=== PATIENT | female | born 1985 | race Caucasian/White ===

== ENCOUNTER → 2018-05-26 | Outpatient (CLI) | payer BC ==
--- NOTE | 2018-05-26 15:17 | US ---
EXAM DESCRIPTION: Abdomen,Complete: Ultrasound. CLINICAL HISTORY: R10.11 COMPARISON: None Available. TECHNIQUE: Transabdominal scannin-dimensional and Doppler modes. FINDINGS: Gallbladder: Normal size and echogenicity of the gallbladder with no intraluminal stones or sludge. Wall not thickened 1.1 mm. No fluid around the wall. Nontender with transducer pressure. Common bile duct: 3-6 mm, normal caliber. Liver: Long axis of the right lobe 17.1 cm. Normal echogenicity. Smooth capsule where seen. Normal direction of vascular flow and normal ducts. No ascites. Pancreas: Included segments with normal echogenicity. Duct not seen.. Abdominal aorta: Normal caliber from the proximal segment to the distal bifurcation. IVC: visualized; normal caliber. Spleen normal echogenicity; long axis measurement is 13.2 cm. Right kidney: 11.8 cm long axis with normal cortical thickness and echogenicity. No hydronephrosis or perinephric fluid. Left kidney: 11.9 cm long axis with normal cortical thickness and echogenicity. No hydronephrosis or perinephric fluid. IMPRESSION: 1. Normal ultrasound of the abdomen. 2. Normal size of the organs. No dilated ducts. No free fluid. Electronically signed by: Mansoor Evans MD 05/26/2018 3:13 PM [facility]
== END ==
LOC: US 09:25
PROVIDERS: ATTEND General Practice
DX: R10.11 Right upper quadrant pain (principal)

== ENCOUNTER → 2020-01-11 | Outpatient (CLI) | payer OTHER ==
--- NOTE | 2020-01-12 14:49 | MRI ---
EXAM DESCRIPTION: Lumbar Spine w/o Contrast : Magnetic Resonance Imaging. CLINICAL HISTORY: SPONDYLOSIS LUMBAR REGION COMPARISON: Radiographs of the lumbar spine on the same visit. TECHNIQUE: Multiplanar, multiple standard sequences, non contrast MRI, lumbar spine. FINDINGS: L5-S1: The disc is well visualized on axial T2 series 501, image 3. Decreased disc space with normal signal in the disc and no bulging. Disc space appears rudimentary with question of sacralization of the L5 lumbar vertebra, particularly the right transverse process. Also the facet joints bilaterally. Mild canal narrowing. Bony narrowing of the left foramen and mild stenosis. Right foramen is mildly narrowed. L4-L5: Disc desiccation and disc space loss. Posterior mild endplate reactive changes. Grade 1 retrolisthesis 3.5 mm. Posterior broad-based disc bulge and minimal inferior migration encroaching on the left subarticular recess and the left descending L5 nerve. Minimal hypertrophy of the posterior flavum ligaments and facet joints (canal elements). Mild canal narrowing. Moderate bilateral foraminal narrowing, more on the left. L3-L4: Mild to moderate disc space loss particularly bilateral margins. Moderate endplate reactive changes bilaterally. Posterior broad-based disc bulge with 3 mm retrolisthesis. Disc migrating inferiorly in the midline into the left of midline with encroachment on the thecal sac, left subarticular recess, and left descending L5 nerve. Minimal hypertrophy of the canal elements. AP canal 11 mm. Bilateral mild foraminal narrowing more on the left. L2-L3: Disc space preserved posterior midline focal bulge or small protrusion impressing on the thecal sac. Hypertrophic changes in the canal elements with AP canal diameter 9 mm. Bilateral mild foraminal narrowing. L1-L2: Normal signal in the disc with disc space preserved. No bulging. Canal elements unremarkable. Bilateral foramina and canal are patent. T12-L1: Disc space preserved with normal signal in the disc. No bulging. Canal elements unremarkable. Bilateral foramina and canal are patent. Conus terminates just below the disc space. No significant scoliosis. Paravertebral soft tissues negative.. Distal cord normal signal and caliber. Otherwise normal marrow signal in the remaining vertebral bodies and the posterior elements. Vertebral bodies are not compressed at any level. IMPRESSION: 1. Question of transitional L5 vertebral body, partially sacralized, particularly the right transverse process with rudimentary appearance of the L5-S1 disc space. Lumbosacral vertebral anomalies can be a cause of abnormal lumbosacral biomechanics and a source of low back pain. 2. Bony narrowing of the left L5-S1 foramen and mild stenosis. Correlate for left L5 radiculopathy. 3. Retrolisthesis at L3-L4 and L4-L5. At both levels, and inferior disc migration to the left of midline encroaching on the subarticular recesses and possible compromise of the left L4 nerve at L3-4 and the left L5 nerve at L4-5. Also bilateral spondylosis at L3-L4 which is most likely a source of low back pain. 4. Multifactorial mild central canal stenosis L2-L3 with small protrusion or focal bulge of the disc. 5. Please refer to FINDINGS for discussion of results at other disc space levels. Electronically signed by: Mansoor Evans MD 01/12/2020 2:47 PM CDT
--- NOTE | 2020-01-12 14:54 | RAD ---
EXAM DESCRIPTION: Lumbar Spine,Flex/Ext: CR/DR/x-ray. CLINICAL HISTORY: 34 years Female SPONDYLOSIS COMPARISON: MRI scan lumbar spine noncontrast on this visit. TECHNIQUE: 2/3 Views lumbar spine. AP Lateral lumbosacral lateral spot L5-S1. . Limited visualization due to patient large body habitus. FINDINGS: Lumbar type vertebra: 5. Transitional vertebrae: Possible thoracolumbar transitional vertebra, with ribs not well seen. Disc spaces: Narrowing L5-S1, L4-L5, and L3-L4. Facet joints: L5, S1, and facet joints are not well seen. Compression deformities: None. Bone Density: Normal. Alignment: Retrolisthesis L3-L4 and L4-L5 stable with flexion and extension. Limited movement of these segments in both directions. Abdomen: Unremarkable. IMPRESSION: Limited study due to patient large body habitus. L5-S1 disc space difficult to evaluate. Retrolisthesis L4-L5 and L3-L4 which does not change significantly with flexion or extension. Possible thoracolumbar transitional vertebra. Consider AP and lateral radiographs of the thoracic spine for rib counting purposes. Transitional L5 vertebra seen on lumbar MRI on this visit. Electronically signed by: Mansoor Evans MD 01/12/2020 2:52 PM CDT
== END ==
LOC: MRI 11:00
PROVIDERS: ATTEND Neurological Surgery
DX: M47.816 Spondylosis without myelopathy or radiculopathy, lumbar region (principal); M51.86 Other intervertebral disc disorders, lumbar region; M48.061 Spinal stenosis, lumbar region without neurogenic claudication; M48.07 Spinal stenosis, lumbosacral region; M43.16 Spondylolisthesis, lumbar region; M51.36 Other intervertebral disc degeneration, lumbar region; M51.87 Other intervertebral disc disorders, lumbosacral region

== ENCOUNTER 2020-05-19 09:33 | Emergency (ER) | payer BC, OTHER ==
--- NOTE | 2020-05-19 09:37 | ED.PDOC ---
History of Present Illness - General Stated Complaint: Fall, right knee injury Time Seen by Provider: 05/19/20 09:36 - History of Present Illness Initial Comments: Patient states she was working at [employer] when she bumped into a table which caused her knee to bend with an audible pop any sudden onset of pain. She then fell down landing on her right hip. Patient does not complain of any pain except in her right knee. She did not hit her head. No neck or back pain. No abdominal pain or chest injury. No weakness or numbness. Occurred: just prior to arrival Severity: moderate Pain Location: lower extremity - Right knee Method of Injury: fall Improving Factors: rest Worsening Factors: movement Loss of Consciousness: no loss of consciousness Associated Symptoms (Fall): denies symptoms Allergies/Adverse Reactions: Allergies NO KNOWN ALLERGY Allergy (Verified 05/19/20 09:37) Review of Systems - Review of Systems Constitutional: States: no symptoms reported EENTM: States: no symptoms reported Respiratory: States: no symptoms reported Cardiology: States: no symptoms reported Gastrointestinal/Abdominal: States: no symptoms reported Musculoskeletal: States: see HPI Skin: States: no symptoms reported Neurological: States: no symptoms reported Endocrine: States: no symptoms reported Hematologic/Lymphatic: States: no symptoms reported Family Medical History - Family History Mother Family History: Unknown Physical Exam - Physical Exam General Appearance: Alert, Comfortable Head Injury: no evidence of injury Eye Exam: bilateral normal ENT Exam: no evidence of ENT injury Neck Exam: non-tender, full range of motion Cardiovascular/Respiratory: regular rate, rhythm, no M/R/G, other - Thorax nontender Gastrointestinal/Abdominal: normal bowel sounds Back Exam: normal inspection, no vertebral tenderness Extremity Exam: other - Right knee tender over the medial joint line without ligamentous laxity. Danay's test is negative. Patella nontender. Full active range of motion. Right hip is nontender with good range of motion without pain. Neurologic: x ray nurse II-XII nml as tested, no motor/sensory deficits, normal mood/affect, oriented x 3 Skin Exam: normal color Progress - Progress Progress: 05/19/20 09:56 Toradol 60 mg IM, knee immobilizer, crutches. - Results/Orders Results/Orders: X-ray right knee reading negative Departure - Departure Clinical Impression: Knee sprain, Fall Time of Disposition: 10:12 Disposition: Discharge to Home or Self Care Condition: Good Instructions: Knee Immobilizer (DC), Knee Sprain (DC) Referrals: Arjun Ko MD [Primary Care Provider] - 1-2 Weeks Comments: No work for 3 days. Use the crutches and wear the immobilizer for 1 week. See your primary care doctor or an orthopedist if your symptoms persist. Use your ibuprofen and tramadol prescriptions as needed for pain.
[2020-05-19] MEDS ORDERED: KETOROLAC TROMETHAMINE INJ 60 MG/2 ML VIAL IM ONE (09:54)
--- NOTE | 2020-05-19 10:12 | RAD ---
EXAM DESCRIPTION: Knee,Right Complete RadLex: XR KNEE 4 OR MORE VIEWS CLINICAL HISTORY: fall COMPARISON: None. FINDINGS: There is no fracture, effusion or dislocation. The joint spaces are well preserved. There are no significant degenerative changes. The soft tissues are normal. There is no foreign body. IMPRESSION: 1. Normal x-ray of the knee Electronically signed by: Basilio Connor MD 05/19/2020 10:10 AM [facility]
[2020-05-19 10:57] VITALS: BP 119/74; TEMP 98.2; O2SAT 99
== END 2020-05-19 10:44 | disposition home or self-care (01) ==
LOC: ER 09:33
DX: S83.91XA Sprain of unspecified site of right knee, initial encounter (principal); W18.09XA Striking against other object with subsequent fall, initial encounter; Y99.0 Civilian activity done for income or pay; Y92.512 Supermarket, store or market as the place of occurrence of the external cause
CPT/HCPCS: 73562; J1885